=== PATIENT | male | born 1970 | race Hispanic/Latino ===

== ENCOUNTER 2016-10-12 02:34 | Emergency (ER) | payer SELFPAY ==
[2016-10-12 02:48] VITALS: RESP 16
--- NOTE | 2016-10-12 03:25 | ED PDOC ---
HPI: General Adult Time Seen by Provider: 10/12/16 02:48 Chief Complaint (Nursing): Weakness/Neurological Deficit Chief Complaint (Provider): left upper jaw pain, abd cramping History Per: Patient, Other (girlfriend ) History/Exam Limitations: no limitations Onset/Duration Of Symptoms: Hrs Have you had recent travel within the past 21 days to any of the following countries: [place], [place], [place] or [place]?: No Current Symptoms Are (Timing): Still Present Additional Complaint(s): 46yo male presents to the ED, with girlfriend, with c/o acute onset left upper jaw pain with associated abdominal cramping. Girlfriend reports patient has had teeth issues for a couple months now and has been unable to see dentist because he has no insurance. Girlfriend states she attempted to help her boyfriend ( texted friend who works in [facility] for advice) giving him doxycycline, motrin, and 2 percocets he had left over from previous prescription. Patient also used 80% of anbesol tube [employer] and subsequently began complaining of abdominal cramping and noted to spit up some. Past Medical History Reviewed: Historical Data, Nursing Documentation, Vital Signs Vital Signs: Last Vital Signs Temp 98.4 F 10/12/16 05:42 Pulse 83 10/12/16 05:42 Resp 16 10/12/16 05:42 BP 120/78 10/12/16 05:42 Pulse Ox 100 10/12/16 05:42 - Medical History PMH: No Chronic Diseases - Surgical History Surgical History: No Surg Hx - Family History Family History: States: No Known Family Hx - Home Medications Home Medications: Ambulatory Orders Medication Instructions Recorded Amoxicillin 500 mg PO BID #14 tablet 10/12/16 Ibuprofen [Motrin] 600 mg PO Q6H PRN #20 tab 10/12/16 - Allergies Allergies/Adverse Reactions: Allergies Allergy/AdvReac Type Severity Reaction Status Date / Time No Known Allergies Allergy Verified 10/12/16 02:52 Review of Systems ROS Statement: Except As Marked, All Systems Reviewed And Found Negative ENT: Positive for: Other (left upper jaw pain ) Gastrointestinal: Positive for: Other (abd cramping ) Physical Exam - Reviewed Nursing Documentation Reviewed: Yes Vital Signs Reviewed: Yes - Physical Exam Appears: Positive for: No Acute Distress, Uncomfortable Head Exam: Positive for: ATRAUMATIC, NORMAL INSPECTION, NORMOCEPHALIC Skin: Positive for: Normal Color, Warm, Dry ENT: Positive for: Other (left upper tooth decay and empty area where tooth broke off, no surrounding abscess ). Negative for: Pharyngeal Erythema, Tonsillar Exudate, Tonsillar Swelling Cardiovascular/Chest: Positive for: Regular Rate, Rhythm. Negative for: Murmur , Tachycardia Respiratory: Positive for: Normal Breath Sounds. Negative for: Wheezing, Respiratory Distress Gastrointestinal/Abdominal: Positive for: Soft. Negative for: Tenderness, Distended Back: Positive for: Normal Inspection Extremity: Positive for: Normal ROM. Negative for: Deformity, Swelling Neurologic/Psych: Positive for: Alert, Oriented - Laboratory Results Result Diagrams: 10/12/16 03:20 10/12/16 03:20 - ECG O2 Sat by Pulse Oximetry: 98 Pulse Ox Interpretation: Normal (RA) Medical Decision Making Medical Decision Makin: Impression: abdominal cramping, left upper jaw pain Plan: EKG Labs CXR morphine 4mg IV, pepcid 20mg IVP, IVF reassess 0410: Poison control called, recommend observing patient and repeat EKG. 0500: UDS positive for cocaine, marijuana, and opiates. Patient states he feels better. Poison control advises watching patient and states he can go when he feels better. 0539: Patient stable for d/c at this time. Instructed to f/u at [facility] dental clinic tomorrow. Advised to return to the ED should he experience any worsening or concerning symptoms. Scribe Attestation: Documented by Taylor Arriola acting as a scribe for Torri Jurado MD. Provider Scribe Attestation: All medical record entries made by the Scribe were at my direction and personally dictated by me. I have reviewed the chart and agree that the record accurately reflects my personal performance of the history, physical exam, medical decision making, and the department course for this patient. I have also personally directed, reviewed, and agree with the discharge instructions and disposition. Disposition - Clinical Impression Clinical Impression: Polysubstance abuse - Patient ED Disposition Is Patient to be Admitted: No Counseled Patient/Family Regarding: Studies Performed, Diagnosis, Need For Followup - Disposition Referrals: [facility] [Outside] Disposition: Routine/Home Disposition Time: 05:00 Condition: IMPROVED Additional Instructions: follow up at [facility] dental clinic tomorrow return to [facility] ED with any oaren Prescriptions: Amoxicillin 500 mg PO BID #14 tablet Ibuprofen [Motrin] 600 mg PO Q6H PRN #20 tab PRN Reason: Pain, Moderate (4-7) Instructions: Dental Caries (ED), Polysubstance Abuse (ED), Toothache (ED)
[2016-10-12 03:32] LABS: BASO # 0.1 K/uL (0.0-0.2); BASO % 0.5 % (0.0-2.0); EOS # 0.5 K/uL (0.0-0.7); EOS % 3.5 % (0.0-4.0); HEMATOCRIT 42.9 % (35.0-51.0); LYMPH # 3.8 K/uL (1.0-4.3); LYMPH % 28.6 % (20.0-40.0); MEAN CELL VOLUME 88.7 fl (80.0-94.0); MEAN CORPUSCULAR HEMOGLOBIN 29.2 pg (27.0-31.0); MEAN CORPUSCULAR HGB CONC 32.9 g/dL (33.0-37.0); MEAN PLATELET VOLUME 8.3 fl (7.2-11.7); MONO # 1.1 K/uL (0.0-0.8); NEUT # 7.9 K/uL (1.8-7.0); NEUT % 59.4 % (50.0-75.0); RED CELL DISTRIBUTION WIDTH 14.1 % (11.5-14.5); WHITE BLOOD COUNT 13.3 K/uL (4.8-10.8)
[2016-10-12] MEDS ORDERED: Sodium Chloride 0.9% 1,000 ML IV STA (03:32)
[2016-10-12 03:42] LABS: ALB/GLOB RATIO 1.4 (1.0-2.1); ALCOHOL SERUM < 10 mg/dl (0-10); ALKALINE PHOSPHATASE 104 U/L (38-126); ALT/SGPT 64 U/L (21-72); AST/SGOT 87 U/L (17-59); BILIRUBIN,TOTAL 0.4 mg/dl (0.2-1.3); BLOOD UREA NITROGEN 11 mg/dl (9-20); CALCIUM 9.4 mg/dL (8.4-10.2); CARBON DIOXIDE 29 mmol/L (22-30); CHLORIDE 106 mmol/L (98-107); GFR AFRICAN-AMERICAN > 60; GLUCOSE,RANDOM 114 mg/dL (75-110); POTASSIUM 3.7 MMOL/L (3.6-5.0); SODIUM 144 mmol/l (132-148); TOTAL PROTEIN 8.2 G/DL (6.3-8.2)
[2016-10-12 05:42] VITALS: BP 120/78; PULSE 83; TEMP 98.4
--- NOTE | 2016-10-12 10:57 | RAD ---
HISTORY: overdose COMPARISON: None available. TECHNIQUE: Chest, one view. FINDINGS: LUNGS: No focal consolidation. Please note that chest x-ray has limited sensitivity for the detection of pulmonary masses. PLEURA: No significant pleural effusion identified. No definite pneumothorax . CARDIOVASCULAR: The cardiomediastinal silhouette appears within normal limits of size. OSSEOUS STRUCTURES: No acute osseous abnormality identified. VISUALIZED UPPER ABDOMEN: Unremarkable. OTHER FINDINGS: None. IMPRESSION: No focal consolidation, significant pleural effusion, or definite pneumothorax identified.
--- NOTE | 2016-10-12 19:20 | CARD ---
APPROVED REPORT EKG Measurement Heart [id number] <Conclusion> Sinus rhythm with marked sinus arrhythmia with 1st degree AV block Otherwise normal ECG
[2016-10-13 04:37] VITALS: O2SAT 98
== END 2016-10-12 05:50 | disposition home or self-care (01) ==
LOC: H.ER 02:34
DX: F19.10 Other psychoactive substance abuse, uncomplicated (principal); R68.84 Jaw pain; R10.9 Unspecified abdominal pain; K02.9 Dental caries, unspecified
CPT/HCPCS: 71010; 80053; 82550; 85025; 93005; 96374; 99285; G0480; J2270; J7040